=== PATIENT | female | born 1990 | race Caucasian/White ===

== ENCOUNTER 2017-12-02 21:19 | Emergency (ER) | payer OTHER ==
[~2017-12-02 21:19] MED LIST: CIPR500T4 PO
[2017-12-02 21:35] VITALS: BP 132/78; PULSE 97; RESP 20; TEMP 98
[2017-12-02] MEDS ORDERED: PROCHLORPERAZINE INJ 10 MG/2 ML VIAL IV PUSH ONE (23:45)
[2017-12-02] MEDS ORDERED: diphenhydrAMINE HCL 50 MG/ML VIAL IV PUSH ONE (23:45)
--- NOTE | 2017-12-02 23:48 | PD ---
HPI . Head injury Chief Complaint: Head Injury Time Seen by Provider: 23:26 Travel History International Travel<30 days: No Contact w/Intl Traveler<30days: No Traveled to known affect area: No History of Present Illness HPI This patient presents complaining with a head injury. She states that she was working at [employer] last night when she inadvertently struck the right side of her head on one of the concrete supports in the store. She had no loss of consciousness. Since that time, she has had a "pounding headache"with associated nausea. She rates her pain at 10/10. She states that it has been unrelieved by Tylenol and Tylenol 3. She subsequently presented to [facility] for further evaluation. [facility] Past Medical History Asthma: Yes Cancer: No Cardiovascular Problems: No Diminished Hearing: No Endocrine: No Genitourinary: No Immune Disorder: No Musculoskeletal: No Neurologic: No Psychiatric: No Reproductive: No Respiratory: Yes Immunizations Current: No Tetanus Vaccination: < 5 Years Influenza Vaccination: No ?: Not LMP: 11/19/17 : 0 Para: 0 Miscarriage: 0 : 0 Past Surgical History Eye Surgery: Yes (RIGHT EYE) Other Surgery: Yes Social History Alcohol Use: Yes (2/WEEK) Tobacco Use: No Substance Use: No Allergies-Medications (Allergen,Severity, Reaction): Coded Allergies: amoxicillin (Unverified Allergy, Severe, Rash, 12/02/17) cefaclor (Unverified Allergy, Severe, Rash, 12/02/17) clarithromycin (Unverified Allergy, Severe, Rash, 12/02/17) cromolyn (Unverified Allergy, Severe, Rash, 12/02/17) sulfamethoxazole (Unverified Allergy, Severe, Rash, 12/02/17) trimethoprim (Unverified Allergy, Severe, Rash, 12/02/17) doxycycline (Unverified Allergy, Intermediate, Rash, 12/02/17) minocycline (Unverified Allergy, Intermediate, Rash, 12/02/17) tigecycline (Unverified Allergy, Intermediate, Rash, 12/02/17) penicillin G (Unverified Allergy, Unknown, Rash, 12/02/17) Reported Meds & Prescriptions Reported Meds & Active Scripts Active Review of Systems Except as stated in HPI: all other systems reviewed are Neg General / Constitutional: No: Fever, Chills Eyes: No: Blurred Vision HENT: Positive: Headaches Gastrointestinal: Positive: Nausea Neurologic: Positive: Paresthesia (brief episode of right-sided paresthesias) Physical Exam Narrative GENERAL: Awake and alert. She does not to be in any distress at all. SKIN: Warm and dry. HEAD: Normocephalic/atraumatic. Small contusion palpable on the right side of her scalp. EYES: Pupils are equal. Extraocular movements are intact. NECK: Normal range of motion. CARDIOVASCULAR: Regular rate and rhythm. RESPIRATORY: Nonlabored respirations. MUSCULOSKELETAL: Atraumatic. NEUROLOGICAL: A and O 3. Cranial nerves II through XII are grossly intact. She is ambulatory and moving all 4 extremities equally. PSYCHIATRIC: Appropriate mood and affect. Data Data Last Documented VS Vital Signs Date Time Temp Pulse Resp B/P (MAP) Pulse Ox O2 Delivery O2 Flow Rate FiO2 12/02/17 23:32 Room Air 12/02/17 21:35 98.0 97 20 132/78 (96) Orders Orders Ct Brain W/O Iv Contrast(Rout) (12/02/17 23:36) ^ Saline Lock (12/02/17 23:37) Diphenhydramine Inj (Benadryl Inj) (12/02/17 23:45) Prochlorperazine Inj (Compazine Inj) (12/02/17 23:45) MDM Medical Decision Making Medical Screen Exam Complete: Yes Emergency Medical Condition: Yes Differential Diagnosis My differential diagnosis of head trauma includes but is not limited to scalp contusion, concussion, intracerebral hemorrhage. Narrative Course The patient presents for the evaluation of a head injury. She struck her head last night. She reports headache and nausea since that time. She looks well. I have a very low index of suspicion for acute intracranial hemorrhage. Head CT is negative. Diagnosis Primary Impression: Contusion of scalp, initial encounter Patient Instructions: General Instructions, Scalp Contusion in Adults (ED) Additional Instructions: Ice to the area as needed for pain. Tylenol and/or ibuprofen as needed for pain. Disposition: 01 DISCHARGE HOME Condition: Stable Norma Suresh MD Dec 02, 2017 23:47
--- NOTE | 2017-12-03 01:16 | RADRPT ---
EXAM DATE/TIME: 12/03/2017 00:14 [place] COMPARISON: No previous studies available for comparison. INDICATIONS : Trauma to right temporal region. RADIATION DOSE: 55.95 CTDIvol (mGy) MEDICAL HISTORY : None SURGICAL HISTORY : None. ENCOUNTER: Initial ACUITY: 1 day PAIN SCALE: 10/10 LOCATION: Right temporal TECHNIQUE: Multiple contiguous axial images were obtained of the head. Using automated exposure control and adj ustment of the mA and/or kV according to patient size, radiation dose was kept as low as reasonably a chievable to obtain optimal diagnostic quality images. DICOM format image data is available electro nically for review and comparison. FINDINGS: CEREBRUM: The ventricles are normal for age. No evidence of midline shift, mass lesion, hemorrhage or acute in farction. No extra-axial fluid collections are seen. POSTERIOR FOSSA: The cerebellum and brainstem are intact. The 4th ventricle is midline. The cerebellopontine angle i s unremarkable. EXTRACRANIAL: The visualized portion of the orbits is intact. SKULL: The calvaria is intact. No evidence of skull fracture. CONCLUSION: Negative noncontrast CT brain. Lyndon Hargrove MD on December 03, 2017 at 1:14 Board Certified Radiologist. This report was verified electronically.
[2017-12-03 01:58] VITALS: BP 127/72
== END 2017-12-03 02:00 | disposition home or self-care (01) ==
LOC: PHED 21:19
DX: S00.03XA Contusion of scalp, initial encounter (principal); R51 Headache; R11.0 Nausea; J45.909 Unspecified asthma, uncomplicated; W22.8XXA Striking against or struck by other objects, initial encounter; Y92.512 Supermarket, store or market as the place of occurrence of the external cause; Y99.0 Civilian activity done for income or pay
CPT/HCPCS: 70450; 96374; 96375; 99284; J0780; J1200